=== PATIENT | male | born 1945 | race African-American/Black ===

== ENCOUNTER 2021-06-29 11:12 | Outpatient (CLI) | payer OTHER ==
[2021-06-29 11:51] LABS: PLATELET COUNT 277 K/uL (142-355)
[2021-06-29 12:14] LABS: POTASSIUM 4.5 mmol/L (3.6-5.2); SODIUM 137 mmol/L (136-145)
== END 2021-06-29 19:06 | disposition home or self-care (01) ==
LOC: RESP 11:12
PROVIDERS: ATTEND Family Medicine
DX: R06.89 Other abnormalities of breathing (principal); R63.4 Abnormal weight loss; E11.9 Type 2 diabetes mellitus without complications; Z87.891 Personal history of nicotine dependence; N40.0 Benign prostatic hyperplasia without lower urinary tract symptoms
CPT/HCPCS: 36415; 80053; 80061; 81000; 82550; 82553; 83036; 84439; 84443; 84484; 85027; 93005; Q9963

== ENCOUNTER 2023-07-09 09:39 | Outpatient (CLI) | payer OTHER | END 2023-07-09 19:10 | disposition home or self-care (01) | LOC: RAD 09:39 | PROVIDERS: ATTEND Family Medicine | DX: M54.89 Other dorsalgia (principal) ==